=== PATIENT | male | born 1950 | race Caucasian/White ===

== ENCOUNTER 2016-09-20 00:17 | Emergency (ER) | payer BC ==
[~2016-09-20] VITALS: Ht 180.3 cm; Wt 88.1 kg
[~2016-09-20 00:17] MED LIST: LO-DOSE ASPIRIN81 M2 PO; NEXIUM40 MG PO
[2016-09-20] MEDS ORDERED: NORCO 5/3251 TABLET PO (01:48)
[2016-09-20 01:56] VITALS: BP 168/86
== END 2016-09-20 01:57 | disposition home or self-care (01) ==
LOC: EME 00:17 → EXP 00:17
DX: H16.002 Unspecified corneal ulcer, left eye (principal); M70.22 Olecranon bursitis, left elbow; Z79.82 Long term (current) use of aspirin
CPT/HCPCS: 99281; 99284